=== PATIENT | female | born 1940 | race Caucasian/White ===

== ENCOUNTER 2020-07-06 00:22 | Day surgery (SDC) | payer OTHER ==
[~2020-07-06 00:22] MED LIST: ALBU.083IS IH; ALBU90OI INH; ALBU90OI6 INH; AMLO10 PO; ASCO1ER; ASCO500 PO; ATOR10; Acetaminophen325 M1 PO; BREO ELLIPTA 21 EAC1 IH; BUDE.25 NEB; Brovana15 MCG/2 M INH; CALGLU500; CALGLU500 PO; CETI10 PO; CRANBERRY; CRANBERRY FRUIT PO; DEXA6 PO; ECHINACEA; ECHINACEA PO; ERGO400 PO; EUTHYROX50 MCG PO; FISH1000; FISH1000 PO; FLAX; FLAX PO; FLUSAL5005 IH; FLUT.05NI; GABA100 PO; GINKO BILOBA; GLUCOSAMINE CHONDROI PO; HYDCHL12.5 PO; HYDCHL25 PO; HYOS.125 SL; L-THYROXINE PO; LEVFLO500 PO; LEVSOD100 PO; LEVSOD50; LISI20 PO; LORA10ER; LORA10ER PO; LOSA50 PO; MELATONIN5 M1 PO; MONT10T PO; MSM; MSM1000; MULVITMINF; OMEP10ER PO; OMEP20ER PO; PRED20 PO; RALO60; RANI150; REMDESIVIR IV; SIMV10 PO; SPIRIVA RESPIMAT4 G2 INH; SYNTHROID75 MCG PO; Simvastatin80 MG PO; TIMO.25OPS LEFTEYE; [UNRECOGNIZED DRUG - OTHER]; [UNRECOGNIZED DRUG - OTHER] PO; [UNRECOGNIZED DRUG - OTHER] PO
== END 2020-07-06 17:25 | disposition home or self-care (01) ==
LOC: ATC 00:22
DX: U07.1 COVID-19 (principal); J12.89 Other viral pneumonia; Z79.899 Other long term (current) drug therapy; Z79.51 Long term (current) use of inhaled steroids; Z88.0 Allergy status to penicillin; Z88.2 Allergy status to sulfonamides; Z88.8 Allergy status to other drugs, medicaments and biological substances
CPT/HCPCS: 96365

== ENCOUNTER 2024-03-10 14:11 | Emergency (ER) | payer OTHER ==
[~2024-03-10] VITALS: Ht 149.9 cm; Wt 72.6 kg
[~2024-03-10 14:11] MED LIST changes: +ASPIR 8181 M1 PO; +DORZOPSO BOTHEYES; +LEVSOD75 PO
[2024-03-10] MEDS ORDERED: Albuterol 2.5 MG/3 ML VIAL INH SCH ×2 (14:25→16:10)
[2024-03-10] MEDS ORDERED: MethylPREDNISolone Sod Succ 125 MG Vial IV ONE (14:25)
[2024-03-10 14:39] LABS: BASOPHILS ABSOLUTE AUTO 0.09 K/mm3 (0.00-0.23); BASOPHILS PERCENT AUTO 1 % (0-2); EOSINOPHILS ABSOLUTE AUTO 0.78 K/mm3 (0.00-0.68); EOSINOPHILS PERCENT AUTO 12 % (0-6); Hematocrit 37.2 % (33.0-51.0); Hemoglobin 12.2 g/dL (11.5-16.0); IMMATURE GRAN ABSOLUTE AUTO 0.01 K/mm3 (0.00-0.10); IMMATURE GRAN PERCENT AUTO 0 % (0-1); LYMPHOCYTES PERCENT AUTO 29 % (21-46); MONOCYTES ABSOLUTE AUTO 0.74 K/mm3 (0.16-1.47); MONOCYTES PERCENT AUTO 11 % (4-13); Mean Corpuscular HGB Conc 32.8 g/dL (31.5-36.5); Mean Corpuscular Volume 91 fL (80-100); Mean Platelet Volume 9.3 fL (9.1-12.4); NEUTROPHILS ABSOLUTE AUTO 3.07 K/mm3 (1.96-9.15); NEUTROPHILS PERCENT AUTO 47 % (41-73); Platelet Count 345 K/mm3 (150-400); RDW Coefficient Variation 13.8 % (11.7-14.2); RDW Standard Deviation 46.7 fL (35.1-46.3); Red Blood Cell Count 4.07 M/mm3 (3.80-5.20); White Blood Cell Count 6.59 K/mm3 (4.00-11.30)
[2024-03-10 14:59] LABS: Albumin, Blood 3.6 g/dL (3.4-5.0); Bilirubin, Total 0.3 mg/dL (0.1-1.0); Bun/Creatinine Ratio 13.2 (12.0-20.0); Creatinine, Blood 0.76 mg/dL (0.40-1.00); Globulin, Blood 3.5 g/dL (2.2-4.0); Total Protein, Blood 7.1 g/dL (6.4-8.2)
[2024-03-10 15:26] LABS: Influenza A, PCR NEGATIVE (NEGATIVE); Influenza B, PCR NEGATIVE (NEGATIVE); Resp Syncytial Virus, PCR NEGATIVE (NEGATIVE); SARS-Cov-2 (COVID-19) PCR, MMC NEGATIVE (NEGATIVE)
[2024-03-10 19:15] VITALS: BP 126/80
[2024-03-10] MEDS ORDERED: ALBU90OI INH (19:58)
[2024-03-10] MEDS ORDERED: ALBU2.5V5 INH (19:59)
[2024-03-10] MEDS ORDERED: PRED20 PO (19:59)
== END 2024-03-10 20:18 | disposition home or self-care (01) ==
LOC: ER 14:11
PROVIDERS: Emergency Medicine
DX: J45.902 Unspecified asthma with status asthmaticus (principal); J44.89 Other specified chronic obstructive pulmonary disease; I10 Essential (primary) hypertension; E03.9 Hypothyroidism, unspecified; K21.9 Gastro-esophageal reflux disease without esophagitis; G47.30 Sleep apnea, unspecified; Z79.51 Long term (current) use of inhaled steroids; Z79.82 Long term (current) use of aspirin; Z79.899 Other long term (current) drug therapy; Z88.2 Allergy status to sulfonamides; Z88.0 Allergy status to penicillin; Z88.8 Allergy status to other drugs, medicaments and biological substances
CPT/HCPCS: 0241U; 71045; 80053; 83880; 84484; 85025; 93005; 93010; 94644; 94645; 94664; 96374; 99285-25; J2919

== ENCOUNTER 2024-05-31 11:18 | Emergency (ER) | payer OTHER ==
[~2024-05-31] VITALS: Ht 149.9 cm; Wt 70.8 kg
[~2024-05-31 11:18] MED LIST changes: +ALBU2.5V5 INH
[2024-05-31 12:02] LABS: BASOPHILS ABSOLUTE AUTO 0.09 K/mm3 (0.00-0.23); BASOPHILS PERCENT AUTO 1 % (0-2); EOSINOPHILS ABSOLUTE AUTO 0.71 K/mm3 (0.00-0.68); EOSINOPHILS PERCENT AUTO 9 % (0-6); Hematocrit 36.2 % (33.0-51.0); Hemoglobin 12.2 g/dL (11.5-16.0); IMMATURE GRAN ABSOLUTE AUTO 0.02 K/mm3 (0.00-0.10); IMMATURE GRAN PERCENT AUTO 0 % (0-1); LYMPHOCYTES ABSOLUTE AUTO 2.06 K/mm3 (0.84-5.20); LYMPHOCYTES PERCENT AUTO 25 % (21-46); MONOCYTES ABSOLUTE AUTO 0.83 K/mm3 (0.16-1.47); MONOCYTES PERCENT AUTO 10 % (4-13); Mean Corpuscular HGB 30.7 pg (26.0-34.0); Mean Corpuscular HGB Conc 33.7 g/dL (31.5-36.5); Mean Corpuscular Volume 91 fL (80-100); Mean Platelet Volume 9.3 fL (9.1-12.4); NEUTROPHILS ABSOLUTE AUTO 4.42 K/mm3 (1.96-9.15); NEUTROPHILS PERCENT AUTO 55 % (41-73); Platelet Count 376 K/mm3 (150-400); RDW Standard Deviation 47.3 fL (35.1-46.3); Red Blood Cell Count 3.97 M/mm3 (3.80-5.20); White Blood Cell Count 8.13 K/mm3 (4.00-11.30)
[2024-05-31 12:16] LABS: Albumin, Blood 3.6 g/dL (3.4-5.0); Bilirubin, Total 0.2 mg/dL (0.1-1.0); Bun/Creatinine Ratio 17.3 (12.0-20.0); Calcium, Blood 9.2 mg/dL (8.5-10.1); Creatinine, Blood 0.75 mg/dL (0.40-1.00); Globulin, Blood 3.5 g/dL (2.2-4.0); Potassium, Blood 4.3 mmol/L (3.5-5.5); Total Protein, Blood 7.1 g/dL (6.4-8.2)
[2024-05-31] MEDS ORDERED: Ipratropium/Albuterol SulF 2.5-0.5MG/3 ML Amp INH ONE (12:25)
[2024-05-31] MEDS ORDERED: PredniSONE 20 MG Tab PO ONE (12:25)
[2024-05-31 12:52] LABS: Influenza A, PCR NEGATIVE (NEGATIVE); Influenza B, PCR NEGATIVE (NEGATIVE); Resp Syncytial Virus, PCR NEGATIVE (NEGATIVE); SARS-Cov-2 (COVID-19) PCR, MMC NEGATIVE (NEGATIVE)
[2024-05-31] MEDS ORDERED: Zithromax250 MG PO (13:08)
[2024-05-31] MEDS ORDERED: Prednisone20 MG PO (13:08)
[2024-05-31 13:15] VITALS: BP 157/76
== END 2024-05-31 13:21 | disposition home or self-care (01) ==
LOC: ER 11:18
PROVIDERS: Emergency Medicine; Student in an Organized Health Care Education/Training Program
DX: J45.901 Unspecified asthma with (acute) exacerbation (principal); I10 Essential (primary) hypertension; E03.9 Hypothyroidism, unspecified; Z79.52 Long term (current) use of systemic steroids; Z79.899 Other long term (current) drug therapy; Z79.82 Long term (current) use of aspirin; Z79.890 Hormone replacement therapy; Z88.0 Allergy status to penicillin; Z88.2 Allergy status to sulfonamides; Z88.8 Allergy status to other drugs, medicaments and biological substances; Z11.52 Encounter for screening for COVID-19
CPT/HCPCS: 0241U; 71046; 80053; 83880; 85025; 93005; 93010; 94640; 94664; 99285-25; J7512